=== PATIENT | male | born 1960 | race African-American/Black ===

== ENCOUNTER 2018-12-24 11:26 | Outpatient (CLI) | payer BC ==
--- NOTE | 2018-12-24 13:47 | RAD ---
RIGHT HIP TWO VIEWS: HISTORY: Osteoarthritis. FINDINGS: Osteoarthritic changes are noted at the hip with mild spurring from the femoral head and acetabulum. Mild medial joint narrowing. The femoral head contour is preserved. No fracture. No acute osseous abnormality. IMPRESSION: Mild degenerative changes, right hip. POS: [facility]
--- NOTE | 2018-12-24 14:13 | RAD ---
RIGHT KNEE FOUR VIEWS: HISTORY: Knee pain. FINDINGS: There are severe degenerative changes noted. There is loss of both medial and lateral joint space, m ore severe medially. Prominent spurring from the femoral and tibial condyles, more prominent mediall y. Prominent spurring and degenerative changes at the patellofemoral joint. No evidence of signific ant joint effusion. IMPRESSION: Moderate to severe degenerative changes noted. POS: [facility]
== END 2018-12-24 11:27 | disposition home or self-care (01) ==
LOC: NAV RAD 11:26
PROVIDERS: ATTEND Internal Medicine
DX: M17.11 Unilateral primary osteoarthritis, right knee (principal); M16.11 Unilateral primary osteoarthritis, right hip